=== PATIENT | male | born 1995 | race Two or more races ===

== ENCOUNTER 2018-09-10 13:31 | Emergency (ER) | payer SELFPAY ==
[~2018-09-10] VITALS: Ht 167.6 cm; Wt 90.7 kg
[~2018-09-10 13:31] MED LIST: CICL15CR2 TP; GRIS500T5 PO
[2018-09-10 13:55] VITALS: BP 153/99
[2018-09-10] MEDS ORDERED: DIPHTH,PERTUSS(ACELL),TET TOX 0.5 ML DISP.SYRIN. VAX IM ONE (14:30)
[2018-09-10] MEDS ORDERED: LIDOCAINE 1% PF 2 ML VIAL. INJ ONE (15:00)
[2018-09-10] MEDS ORDERED: DOXY100T PO (16:14)
--- NOTE | 2018-09-10 16:14 | PHYS DOC ---
Past Medical History Past Medical History: No Pertinent History Past Surgical History: No Surgical History Alcohol Use: None Drug Use: None General Pediatric Assessment Chief Complaint Chief Complaint Laceration History of Present Illness History of Present Illness Patient is a 22-year-old male who presents to the emergency room with complaints of a laceration to his left palm. Patient states the injury happened at approximately 01 100 today. He states that he was trying to shock open and oyster when his hand with the knife slipped and he sliced his hand. Patient is unsure when his last tetanus immunization was. He states that his cousin put gentian olimpia on the site in order to stop bleeding. He denies any numbness, tingling, or weakness of the affected hand. He reports that the laceration site is tender to touch. Review of Systems Review of Systems Constitutional: Denies fever or chills [] Musculoskeletal: Denies back pain or joint pain [] Integument: See history of present illness Neurologic: Denies focal weakness or sensory changes [] All other systems were reviewed and found to be within normal limits, except as documented in this note. Current Medications Current Medications Current Medications Medications (Trade) Dose Ordered Sig/Kee Start Time Stop Time Status Last Admin Dose Admin Diphtheria/ Tetanus/Acell Pertussis (Boostrix) 0.5 ml ONCE ONCE 09/10/18 14:30 09/10/18 14:31 DC 09/10/18 14:23 0.5 ML Lidocaine HCl (Xylocaine-Mpf 1% 2ml Vial) 4 ml 1X ONCE 09/10/18 15:00 09/10/18 15:01 DC 09/10/18 14:53 4 ML Allergies Allergies Allergies Coded Allergies Type Severity Reaction Last Updated Verified No Known Drug Allergies 07/01/16 No Physical Exam Physical Exam Constitutional: Well developed, well nourished, no acute distress, non-toxic appearance, positive interaction HENT: Normocephalic, atraumatic, bilateral external ears normal, nose normal. [ ] Eyes: conjunctiva normal, no discharge. [] Skin: Warm, dry, no erythema, no rash; 2.5 cm laceration noted to palmar aspect of left hand, no active bleeding[] Extremities: Intact distal pulses, no tenderness, no cyanosis, ROM intact, no edema, no deformities. [] Neurologic: Alert and interactive, normal motor function, normal sensory function, no focal deficits noted. [] Vital Signs Vital Signs Date Time Temp Pulse Resp B/P (MAP) Pulse Ox O2 Delivery O2 Flow Rate FiO2 09/10/18 13:55 98.9 80 16 153/99 (117) 98 Room Air 98.9 Radiology/Procedures Radiology/Procedures Laceration Repair by me: Anesthesia: 1% lidocaine locally Location: L palm of hand Tendon/Joint/Nerves: No injury Foreign body: None detected after copious irrigation and exploration Technique: 7 Simple Interrupted Sutures with 4-0 ethilon Complexity: No subcutaneous sutures/mucosal repair/edge excision Post Closure Length: 2.5 cm Patient's bleeding was easily controlled in the department and there is no indication of anemia. No evidence of compartment syndrome, neurologic injury, vascular injury, open joint, tendon laceration, or foreign body. Patient is appropriate for outpatient follow up. Course & Med Decision Making Course & Med Decision Making Pertinent Labs and Imaging studies reviewed. [] Dragon Disclaimer Dragon Disclaimer This electronic medical record was generated, in whole or in part, using a voice recognition dictation system. Departure Departure Impression: Primary Impression: Laceration of left palm without complication Additional Impression: Tetanus toxoid vaccination administered at current visit Disposition: HOME, SELF-CARE Condition: STABLE Referrals: NO PCP (PCP) Patient Instructions: Laceration Care, Adult, [id number] Additional Instructions: Return to the emergency room or follow-up with your primary care doctor in 10- 14 days to have the sutures removed, sooner if you develop a fever or the site becomes red, warmth, or develops drainage Wear the wrist splint that was provided until the sutures removed. He may take Tylenol or ibuprofen as needed for pain. Prescription and use as directed. Scripts Doxycycline Hyclate (DOXYCYCLINE HYCLATE) 100 Mg Tablet 1 TAB PO BID for 7 Days, #14 TAB 0 Refills Prov: ADAMA SUAZO COUNTER HOP 09/10/18 Problem Qualifiers Primary Impression: Laceration of left palm without complication Encounter type: initial encounter Qualified Codes: S61.412A - Laceration without foreign body of left hand, initial encounter ADAMA SUAZO COUNTER HOP Sep 10, 2018 16:14
[2018-09-10] MEDS ORDERED: NEOMY/BACITR/POLYMYXIN OINT PACKET. TP ONE (16:15)
== END 2018-09-10 16:33 | disposition home or self-care (01) ==
LOC: ER 13:31
DX: S61.412A Laceration without foreign body of left hand, initial encounter (principal); Z23 Encounter for immunization; W26.0XXA Contact with knife, initial encounter; Y93.89 Activity, other specified; Y92.89 Other specified places as the place of occurrence of the external cause; Y99.8 Other external cause status
CPT/HCPCS: 12001; 29125; 90471; 90715; 99283